=== PATIENT | male | born 1990 | race Caucasian/White ===

== ENCOUNTER 2022-09-23 12:57 | Emergency (ER) | payer OTHER, SELFPAY ==
--- NOTE | ~2022-09-23 | XR_ITS ---
EXAM: XR finger 2nd LT min 2V DATE: 09/23/2022 14:42 HISTORY: laceration Lt 2nd finger mid phalanx . COMPARISON: None available. FINDINGS: Normal mineralization. No fracture or dislocation. No lytic or blastic lesion. Joint space s are maintained. No erosion or periosteal change. Soft tissues within normal limits. There is medial punctate radiopacity which projects within overlying bandage material. IMPRESSION: No acute osseous finding in the left second digit. Reviewed, dictated and finalized at location K.
[2022-09-23 13:23] VITALS: BP 132/66; PULSE 115; RESP 17; TEMP 36.7; O2SAT 99
--- NOTE | 2022-09-23 16:02 | ED.WOUNDLAC ---
HPI - Wound/Laceration General Chief Complaint: Wound/Laceration Stated Complaint: lac on Left index finger. Time Seen by Provider: 09/23/22 15:38 History of Present Illness HPI narrative: 31-year-old male presents to the emergency room today for a wound to his left index finger. He was at work when it happened. A piece of equipment came down on his finger and tore the skin. Bleeding is controlled. Last tetanus vaccine was 6 months ago. Review of Systems Review of Systems: CONSTITUTIONAL: Denies fever, chills, or sweats. EYES: Denies visual changes, redness, or discharge. ENT: Denies rhinorrhea, congestion, sore throat, or otalgia. CARDIOVASCULAR: Denies chest pain, palpitations, or edema. RESPIRATORY: Denies cough or dyspnea. GASTROINTESTINAL: Denies abdominal pain, nausea, vomiting, or diarrhea. GENITOURINARY: Denies dysuria or hematuria. SKIN: As per HPI MUSCULOSKELETAL: Denies back pain, joint pain, or myalgia. NEUROLOGIC: Denies headache, numbness, dizziness, or weakness. PSYCHIATRIC: Denies anxiety or depression. Exam Narrative: GENERAL: Well-appearing, well-nourished, and in no acute distress. HEAD: Normocephalic, atraumatic. NECK: Supple. CHEST:No respiratory distress. EXTREMITIES: Normal range of motion. No edema. SKIN: small 2cm skin avulsion to left index finger, superficial NEURO: No focal deficits. PSYCH: Normal mood and affect. Course Vital Signs Vital signs: Vital Signs Temperature 36.7 C 09/23/22 13:23 Pulse Rate 115 H 09/23/22 13:23 Respiratory Rate 17 09/23/22 13:23 Blood Pressure 132/66 09/23/22 13:23 Pulse Oximetry 99 09/23/22 13:23 Oxygen Delivery Room Air 09/23/22 13:23 Temperature 36.7 C 09/23/22 13:23 Pulse Rate 115 H 09/23/22 13:23 Respiratory Rate 17 09/23/22 13:23 Blood Pressure 132/66 09/23/22 13:23 Pulse Oximetry 99 09/23/22 13:23 Oxygen Delivery Room Air 09/23/22 13:23 Discharge Plan Discharge Clinical Impression: Avulsion of skin of finger Qualifiers: Encounter type: initial encounter Qualified Code(s): S61.209A - Unspecified open wound of unspecified finger without damage to nail, initial encounter Patient Disposition: Home, Self-Care Condition: Stable Instructions: Antibiotic Form, Skin Avulsion (ED) Additional Instructions: Apply neosporin and bandaid daily. Try to keep wound clean and dry until healed. Follow-up/Referrals: Carmelina,Ranjith Medina M.D. [Primary Care Provider] - (Follow up next week as needed if any problems with wound) Stand Alone Forms: Work/School Release IP Time of Disposition: 16:04
== END 2022-09-23 16:45 | disposition home or self-care (01) ==
PROVIDERS: Emergency Provider Nurse Practitioner Family; PCP Family Medicine
DX: S61.211A Laceration without foreign body of left index finger without damage to nail, initial encounter (principal); W26.8XXA Contact with other sharp object(s), not elsewhere classified, initial encounter; Y99.0 Civilian activity done for income or pay
CPT/HCPCS: 73140; 99283